=== PATIENT | male | born 1985 | race Caucasian/White ===

== ENCOUNTER 2022-07-27 21:21 | Emergency (ER) | payer OTHER, SELFPAY ==
--- NOTE | 2022-07-27 21:26 | ERPHSYRPT ---
- History of Present Illness Time Seen by Provider: 07/27/22 21:25 Source: patient, family Exam Limitations: no limitations Physician History: This is a 37-year-old right-handed white male patient who presents to the emergency department with complaints of right shoulder and neck pain. He denies chest pain. He denies shortness of breath. Patient does do a lot of heavy lifting at work. He works on [employer]. This morning he felt fine but as the day went on he started having more pain in the right shoulder and right clavicular area. He felt some popping and grinding. He did not suffer any acute trauma per his report. He has never had anything like this before. Medical issues include seasonal allergies. He takes multivitamins as well. He has no abdominal pain. He has not fallen Occurred: this afternoon Method of Injury: unknown Quality: aching, throbbing Severity of Pain-Max: moderate Severity of Pain-Current: moderate Extremities Pain Location: shoulder: right Modifying Factors: Improves With: movement Associated Symptoms: none Allergies/Adverse Reactions: No Known Drug Allergies Allergy (Unverified 12/28/14 18:37) Home Medications: Cetirizine HCl [Zyrtec] 10 mg PO DAILY 07/27/22 [History] Multivitamin [Multi-Vitamin Daily] 1 tab PO DAILY 07/27/22 [History] Hx Tetanus, Diphtheria Vaccination/Date Given: No Hx Influenza Vaccination/Date Given: No Hx Pneumococcal Vaccination/Date Given: No Travel Risk - International Travel Have you traveled outside of the country in past 3 weeks: No - Coronavirus Screening Are you exhibiting any of the following symptoms?: No Close contact with a COVID-19 positive Pt in past 14-21 Days: No - Review of Systems Constitutional: No Symptoms Eyes: No Symptoms Ears, Nose, & Throat: No Symptoms Respiratory: No Symptoms Cardiac: No Symptoms Abdominal/Gastrointestinal: No Symptoms Genitourinary Symptoms: No Symptoms Musculoskeletal: Joint Pain (Right clavicle and right shoulder) Skin: No Symptoms Neurological: No Symptoms Psychological: No Symptoms Endocrine: No Symptoms Hematologic/Lymphatic: No Symptoms Immunological/Allergic: No Symptoms All Other Systems: Reviewed and Negative - Past Medical History Pertinent Past Medical History: No - Past Surgical History Past Surgical History: Yes Musculoskeletal: Orthopedic Surgery Other Surgical History: LEG SURGERY 2013 - Social History Smoking Status: Former smoker Exposure to second hand smoke: No Drug Use: none Patient Lives Alone: No - Nursing Vital Signs Nursing Vital Signs: Initial Vital Signs Temperature 97.9 F 07/27/22 21:28 Pulse Rate 70 07/27/22 21:28 Respiratory Rate 20 07/27/22 21:28 Blood Pressure 124/93 07/27/22 21:28 O2 Sat by Pulse Oximetry 99 07/27/22 21:28 Pain Scale Pain Intensity 9 - Physical Exam General Appearance: no apparent distress, alert, anxiety Eyes, Ears, Nose, Throat Exam: normal ENT inspection, moist mucous membranes Neck Exam: normal inspection, non-tender, supple, full range of motion Cardiovascular/Respiratory Exam: chest non-tender, no respiratory distress Abdominal Exam: non-tender Back Exam: normal inspection, normal range of motion, No CVA tenderness, No vertebral tenderness Shoulder Exam: normal inspection, no evidence of injury, limited ROM ([place] to pain. Patient holds his arm flexed at his side and abdomen.) Elbow/Forearm Exam: normal inspection, non-tender, no evidence of injury, normal ROM Wrist Exam: normal inspection, non-tender, no evidence of injury, normal ROM Hand Exam: normal inspection, non-tender, no evidence of injury, normal ROM Neuro/Tendon Exam: normal sensation, normal motor functions, normal tendon functions Mental Status Exam: alert, oriented x 3, cooperative Skin Exam: normal color, warm, dry SpO2 Interpretation: normal O2 Delivery: Room Air - Course Nursing assessment & vital signs reviewed: Yes Ordered Tests: Active Orders 24 hr Category Date Time Status Sling Application STAT Care 07/27/22 21:46 Active CLAVICLE Stat Exams 07/27/22 21:46 Taken SHOULDER Stat Exams 07/27/22 21:46 Taken Medication Summary Discontinued Medications Generic Name Dose Route Start Last Admin Trade Name Freq PRN Reason Stop Dose Admin Methylprednisolone Sodium 0 mg 07/27/22 21:47 07/27/22 21:59 Succinate 125 mg/ Sterile IM 07/27/22 21:48 125 mg Water 2 ml STAT ONE Administration Methylprednisolone Sodium Succinate Confirm 07/27/22 21:55 Methylprednis Sod Succ 125 Mg/2 Ml Vial Administered 07/27/22 21:56 Dose 125 mg .ROUTE .STK-MED ONE Orphenadrine Citrate 60 mg 07/27/22 21:47 07/27/22 21:58 Orphenadrine Citrate 60 Mg/2 Ml Vial IM 07/27/22 21:48 60 mg STAT ONE Administration Orphenadrine Citrate Confirm 07/27/22 21:54 Orphenadrine Citrate 60 Mg/2 Ml Vial Administered 07/27/22 21:55 Dose 60 mg .ROUTE .STK-MED ONE Oxycodone/Acetaminophen 1 tab 07/27/22 21:47 07/27/22 21:57 Oxycodone Hcl/Apap 5 Mg/325 Mg Tablet PO 07/27/22 21:48 1 tab STAT STA Administration Oxycodone/Acetaminophen Confirm 07/27/22 21:54 Oxycodone Hcl/Apap 5 Mg/325 Mg Tablet Administered 07/27/22 21:55 Dose 1 tab .ROUTE .STK-MED ONE Sterile Water Confirm 07/27/22 21:54 Water For Injection,Sterile 10 Ml Vial Administered 07/27/22 21:55 Dose 10 ml IJ .STK-MED ONE - Progress Progress: improved, pain not gone completely, re-examined Progress Note: 07/27/22 22:34 X-ray right clavicle was interpreted by me. There is no evidence of any acute fracture or dislocation. X-ray right shoulder was interpreted by me. There is no evidence of acute fracture or dislocation. This patient's medical issue is 1 of low complexity. The level of complexity and the work-up performed was based on review of the patient's past medical history, history of present illness, medication list review, review of the patient's drug allergies and findings on physical examination. The patient requires an x-ray of his right clavicle and right shoulder. There is no evidence of any acute fracture or dislocation. The patient received intramuscular injection of orphenadrine and Solu-Medrol and received an oral Percocet 5/325 tablet. Patient be discharged to home with take-home Percocet pain medicine number 2 tablets as well as a prescription for orphenadrine orally and prednisone 10 mg orally. He is to wear a sling for comfort sake. He will follow-up with his primary care physician for further evaluation management. Counseled pt/family regarding: diagnosis, need for follow-up, rad results Medical Desision Making - Independent Historian Additional History obtained from: Spouse - Diagnostic Testing Diagnostic test were ordered, analyzed, and reviewed by me: Yes Radiological Interpretation: Interpreted by me, Teleradiologist Report - Risk of complications The pt has a mod risk of morbidity or mortality based on: Need for prescription drug management - Departure Departure Disposition: Home Clinical Impression: Right shoulder strain Condition: Stable Critical Care Time: No Additional Instructions: Ice pack to area 3 times a day for next 48 hours. Wear the sling for comfort. Take your medication as prescribed. Call your primary care doctor tomorrow, 07/28/2022, for further evaluation and management. Forms: Work/School Release Form Prescriptions: Prednisone 10 mg [Deltasone 10 mg] 10 mg PO TID #12 tablet Orphenadrine Citrate 100 mg [Norflex 100 MG Tablet] 100 mg PO BID #10 tab
[2022-07-27] MEDS ORDERED: PERCOCET TABLET 5/325MG PO STA (21:47)
[2022-07-27] MEDS ORDERED: Norflex 60 MG/2 ML IM ONE (21:47)
[2022-07-27] MEDS ORDERED: solu-MEDROL 125 MG, Sterile H2O 10 ml 2 ML IM ONE ×2 (21:47)
[2022-07-27] MEDS ORDERED: Sterile H2O 10 ml IJ ONE (21:54)
[2022-07-27] MEDS ORDERED: PERCOCET TABLET 5/325MG ONE (21:54)
[2022-07-27] MEDS ORDERED: Norflex 60 MG/2 ML ONE (21:54)
[2022-07-27] MEDS ORDERED: solu-MEDROL ONE (21:55)
[2022-07-27 22:36] VITALS: BP 138/99; PULSE 69; O2SAT 98
--- NOTE | 2022-07-28 08:37 | XRAY ---
Indication: Pain. No known injury. Comparison: None 3 view right shoulder demonstrates mild acromioclavicular degenerative arthropathy. No other bony, articular, or soft tissue abnormalities.
--- NOTE | 2022-07-28 08:37 | XRAY ---
Indication: Pain. No known injury. Comparison: None 2 view right clavicle demonstrates mild acromioclavicular degenerative arthropathy. No other bony, articular, or soft tissue abnormalities.
== END 2022-07-27 23:08 | disposition home or self-care (01) ==
LOC: ED 21:21
DX: S46.911A Strain of unspecified muscle, fascia and tendon at shoulder and upper arm level, right arm, initial encounter (principal); X50.0XXA Overexertion from strenuous movement or load, initial encounter; X50.3XXA Overexertion from repetitive movements, initial encounter; Y99.0 Civilian activity done for income or pay; M25.511 Pain in right shoulder; M54.2 Cervicalgia
CPT/HCPCS: 73000; 73030; 96372; 99283; J2360; J2930; A9270-GY

== ENCOUNTER 2024-06-15 13:15 | Emergency (ER) | payer OTHER ==
[2024-06-15 13:59] VITALS: TEMP 97.1
--- NOTE | 2024-06-15 14:09 | ERPHSYRPT ---
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 Has been going on for about a day and a half for 2 days. He does not have a real history of headaches. He has a little bit of vertigo associated with it. It is positional. It only gets bad whenever he gets up from lying down for a while. He says it is not like he is going to pass out or feeling lightheaded. He says that it is off balance like a balance issue perhaps like he is drank too much. The headache is mainly behind the eyes. He has some photophobia. He says it hurts a little bit when he moves his eyes as well.Nothing makes his symptoms better or worse. He is taken some Tylenol and it seemed to help. He does not have any focal neurological deficits. He does not have any ataxia or Othercerebellar symptoms, Only the mild positional vertigo.The headache was not abrupt. There is no thunderclap. Is not the worst headache of life. Quality: aching Allergies/Adverse Reactions: No Known Drug Allergies Allergy (Unverified 06/15/24 13:39) Home Medications: Multivitamin [Multi-Vitamin Daily] 1 tab PO DAILY 07/27/22 [History] Loratadine 10 mg [Claritin 10 mg] 10 mg PO DAILY 06/15/24 [History] Hx Tetanus, Diphtheria Vaccination/Date Given: Yes (2017) Hx Influenza Vaccination/Date Given: No Hx Pneumococcal Vaccination/Date Given: No Travel Risk - International Travel Have you traveled outside of the country in past 3 weeks: No - Emerging Infectious Disease Are you exhibiting symptoms associated with any current EIDs: No - Review of Systems Constitutional: No Symptoms Respiratory: No Symptoms Musculoskeletal: No Symptoms Skin: No Symptoms Psychological: No Symptoms All Other Systems: Reviewed and Negative - Past Medical History Pertinent Past Medical History: No Neurological History: No Pertinent History ENT History: No Pertinent History Cardiac History: No Pertinent History Respiratory History: No Pertinent History Endocrine Medical History: No Pertinent History Musculoskeletal History: Fractures GI Medical History: No Pertinent History History: No Pertinent History Psycho-Social History: No Pertinent History Male Reproductive Disorders: No Pertinent History Other Medical History: allergies - Past Surgical History Past Surgical History: Yes Neuro Surgical History: No Pertinent History Cardiac: No Pertinent History Respiratory: No Pertinent History Gastrointestinal: No Pertinent History Genitourinary: No Pertinent History Musculoskeletal: Orthopedic Surgery Male Surgical History: No Pertinent History Other Surgical History: LEG SURGERY 2011, 2013 - Social History Smoking Status: Former smoker Exposure to second hand smoke: Yes Drug Use: none - Social Determinants of Health Will the patient participate in the screening: Yes Do you worry about a steady place to live?: No Do you have any problems with any of the following?: No known problems In the past 12 months,have you had to go without utilities?: No Transportation Issues: No Has anyone in your support network made you feel unsafe?: No Have you or anyone in your house had to go w/o enough food: No - Nursing Vital Signs Nursing Vital Signs: Initial Vital Signs Temperature 97.1 F 06/15/24 13:51 Pulse Rate 93 H 06/15/24 13:51 Respiratory Rate 14 06/15/24 13:51 Blood Pressure 128/94 06/15/24 13:51 O2 Sat by Pulse Oximetry 98 06/15/24 13:51 Pain Scale Pain Intensity 5 - Physical Exam General Appearance: no apparent distress Eye Exam: PERRL/EOMI, eyes nml inspection Ears, Nose, Throat Exam: normal ENT inspection, TMs normal, pharynx normal Neck Exam: normal inspection, non-tender Respiratory Exam: normal breath sounds, lungs clear, No chest tenderness Cardiovascular Exam: regular rate/rhythm, normal heart sounds Gastrointestinal/Abdominal Exam: soft, normal bowel sounds, tenderness lathe operator contact lens Exam: normal hearing, normal speech, PERRL Coordination/Gait Exam: normal finger to nose, normal gait, normal cerebellar function Motor/Sensory Exam: no motor deficit, no sensory deficit, no pronator drift Skin Exam: normal color, warm SpO2: 98 Ordered Tests: Active Orders 24 hr Category Date Time Status HEAD WITHOUT CONTRAST [CT] Stat Exams 06/15/24 15:34 Completed BMP Stat Lab 06/15/24 14:05 Completed CBC W DIFF Stat Lab 06/15/24 14:05 Completed Medication Summary Discontinued Medications Generic Name Dose Route Start Last Admin Trade Name Shelly PRN Reason Stop Dose Admin Ketorolac Tromethamine 30 mg 06/15/24 15:35 06/15/24 15:39 Ketorolac Tromethamine 30 Mg/Ml Inj IV 06/15/24 15:36 30 mg STAT ONE Administration Ketorolac Tromethamine Confirm 06/15/24 15:37 Ketorolac Tromethamine 30 Mg/Ml Inj Administered 06/15/24 15:38 Dose 30 mg .ROUTE .STK-MED ONE Meclizine HCl 50 mg 06/15/24 15:35 06/15/24 15:39 Meclizine Hcl 25 Mg Tablet PO 06/15/24 15:36 50 mg STAT ONE Administration Meclizine HCl Confirm 06/15/24 15:37 Meclizine Hcl 25 Mg Tablet Administered 06/15/24 15:38 Dose 50 mg .ROUTE .STK-MED ONE Lab/Rad Data: Laboratory Result Diagrams 06/15/24 14:05 06/15/24 14:05 Laboratory Results 06/15/24 06/15/24 Range/Units 14:05 14:05 WBC 5.0 (4.23-9.07) x10^3/uL RBC 4.76 (4.63-6.08) x10^6/uL Hgb 13.8 (13.7-17.5) g/dL Hct 40.0 L (40.1-51.0) % MCV 84.0 (79.0-92.2) fL MCH 29.0 (25.7-32.2) pg MCHC 34.5 (32.3-36.5) g/dL RDW 11.6 (11.6-14.4) % Plt Count 342 H (163-337) x10^3/uL MPV 9.7 (9.4-12.4) fL Gran % 56.1 (34.0-67.9) % Immature Gran % (Auto) 0.2 (0.001-0.429) % Nucleat RBC Rel Count 0.0 (0.00-0.2) % Eos # (Auto) 0.14 (0.04-0.54) x10^3/uL Immature Gran # (Auto) 0.01 (0.001-0.031) x10^3u/L Absolute Lymphs (auto) 1.41 (1.32-3.57) x10^3/uL Absolute Monos (auto) 0.57 (0.30-0.82) x10^3/uL Absolute Nucleated RBC 0.00 (0.00-0.012) x10^3u/L Lymphocytes % 28.1 (21.8-53.1) % Monocytes % 11.4 (5.3-12.2) % Eosinophils % 2.8 (0.8-7.0) % Basophils % 1.4 H (0.2-1.2) % Absolute Granulocytes 2.81 (1.78-5.38) x10^3/uL Basophils # 0.07 (0.01-0.08) x10^3/uL Sodium 142 (135-145) mmol/L Potassium 4.1 (3.5-5.1) mmol/L Chloride 101 (98-107) mmol/L Carbon Dioxide 29 (22-30) mmol/L Anion Gap 16.4 H (5-15) MEQ/L BUN 18 (9-20) mg/dL Creatinine 0.94 (0.66-1.25) mg/dL Estimated GFR 107.1 ML/MIN Glucose 94 (74-106) mg/dL Calcium 9.3 (8.4-10.2) mg/dL - Progress Progress: improved Air Movement: good Progress Note: On the differential was sinus headache, tension headache, viral encephalitis, sinusitis. Patient had some retention cyst on his maxillary sinuses on x-ray I am sorry on CT. His symptoms seem to be more intense than a tension headache. I think that he may have viral encephalitis. I am going to have him isolate for a few days and give him some Toradol to take home as well as he can take Tylenol. He is to return if symptoms worsen 06/15/24 17:04 Medical Desision Making - Risk of complications Minimal Risk: Minimal risk of morbidity Low Risk: Low risk of morbidity from additional dx testing or treatment - Departure Departure Disposition: Home Clinical Impression: Headache Condition: Stable Critical Care Time: No Referrals: [facility],'[facility] [Primary Care Provider] - Follow up/PCP as directed Instructions: Headache, Adult (DC)
[2024-06-15 14:24] LABS: Absolute Neutrophil Ct (ANC) 2.81 x10^3/uL (1.78-5.38); BASOPHIL % 1.4 % (0.2-1.2); Basophil (Absolute #) 0.07 x10^3/uL (0.01-0.08); Eosinophil % 2.8 % (0.8-7.0); Eosinophil (Absolute #) 0.14 x10^3/uL (0.04-0.54); Hemoglobin 13.8 g/dL (13.7-17.5); IMMATURE GRAN # 0.01 x10^3u/L (0.001-0.031); IMMATURE GRAN % 0.2 % (0.001-0.429); Lymphocyte (Absolute #) 1.41 x10^3/uL (1.32-3.57); Lymphocytes % 28.1 % (21.8-53.1); Mean Corpuscular Hgb Concent. 34.5 g/dL (32.3-36.5); Mean Platelet Volume 9.7 fL (9.4-12.4); Monocyte (Absolute #) 0.57 x10^3/uL (0.30-0.82); Monocytes % 11.4 % (5.3-12.2); Neutrophil % 56.1 % (34.0-67.9); Platelet Count 342 x10^3/uL (163-337); Red Blood Count 4.76 x10^6/uL (4.63-6.08); Red Cell Distribution Width 11.6 % (11.6-14.4)
[2024-06-15 14:35] LABS: ANION GAP 16.4 MEQ/L (5-15); Calcium 9.3 mg/dL (8.4-10.2); Creatinine 1 0.94 mg/dL (0.66-1.25); EST GLOMERULAR FILTRATION RATE 107.1 ML/MIN; Potassium 4.1 mmol/L (3.5-5.1)
[2024-06-15] MEDS ORDERED: ANTIVERT 25 MG ONE (15:37)
[2024-06-15] MEDS ORDERED: TORAdol 30 mg Injection ONE (15:37)
[2024-06-15] MEDS: ANTIVERT 25 MG PO ONE (15:39)
[2024-06-15] MEDS: TORAdol 30 mg Injection IV ONE (15:39)
[2024-06-15 16:17] VITALS: O2SAT 98
--- NOTE | 2024-06-15 16:42 | XRAY ---
Indication: Headache. Multiple contiguous axial images obtained through the head without contrast. Comparison: None Normal appearing brain parenchyma, ventricles, and bony calvarium. 3 cm left and 1.3 cm right maxillary sinus polyps/retention cysts. Mild mucosal thickening both ethmoid and left sphenoid sinuses. Mastoid air cells are clear. Impression: Bilateral maxillary sinus polyps/retention cysts. Mild paranasal sinus disease. Remaining CT head without contrast exam is normal.
[2024-06-15 17:07] VITALS: BP 125/92; PULSE 77; RESP 12
== END 2024-06-15 17:26 | disposition home or self-care (01) ==
LOC: ED 13:15
DX: R51.9 Headache, unspecified (principal); Z79.899 Other long term (current) drug therapy
CPT/HCPCS: 36415; 70450; 80048; 85025; 93005; 96374; 99284; J1885; A9270-GY